=== PATIENT | male | born 1990 | race Caucasian/White ===

== ENCOUNTER 2016-09-15 22:04 | Inpatient (IN) | payer BC, OTHER ==
[~2016-09-15] VITALS: Ht 188 cm; Wt 72.4 kg
--- NOTE | 2016-09-16 05:49 | ER ---
ADMIT: 09/15/2016 RM/LOC: 630 [facility] MR#: [id number] [address] [address] [address] [place] [address] Emergency Room Report SEX: M AGE: 26 : 1990 DATE: 09/15/2016 CHIEF COMPLAINT: Abdominal pain. HISTORY OF PRESENT ILLNESS: The patient is a 26-year-old male with cryptogenic pancreatitis, 3 previous admissions and evaluation at [facility] with biliary ultrasound, which was negative for impacted gallstones. States this weekend he did overindulge in alcohol and developed typical epigastric pain with vomiting. Denies any fevers, chills, diarrhea, flank pain, urgency, hematuria or dysuria. PAST MEDICAL HISTORY: ALLERGIES: NONE. MEDICATIONS: None. ILLNESSES: Cryptogenic pancreatitis. OPERATIONS: None. SOCIAL HISTORY: Occasional alcoholic beverage. Nonsmoker. No illicit drugs. FAMILY HISTORY: Adopted. REVIEW OF SYSTEMS: A 12-point review of systems negative for all other systems, illnesses, or operations except as outlined above. PHYSICAL EXAMINATION: VITAL SIGNS: Temp 97.7, pulse 68, respirations 18, BP 131/67, SaO2 of 95% on room air, weight 72.6 kilos. GENERAL: Nontoxic, acutely uncomfortable male without jaundice or icterus. HEENT: Normocephalic. No evidence of epistaxis, rhinorrhea, or otorrhea. NECK: Supple without lymphadenopathy or thyromegaly. CHEST: Clear. Breath sounds equal. HEART: Regular rate and rhythm without murmur, gallop, or edema. ABDOMEN: Soft, scaphoid, tender epigastrium without mass or megaly. Bowel sounds hypoactive. EXTREMITIES: No evidence of Homans sign, synovitis, or dermatitis. NEURO: EOMI. PERRLA. No evidence of drift, dysarthria, or ataxia. Gait normal. MENTAL STATUS: Alert, oriented, and cooperative without delusions, hallucinations, or abnormal thought content. MEDICAL DECISION MAKING: CT abdomen and pelvis shows acute nonsuppurative pancreatitis with no ductal dilatation. No evidence of gallstones, minimal ascites noted in the pelvis. WBC 15.0 with left shift. CRP 1.28. Lactic 0.8. Normal bilirubin, alkaline phosphatase, and AST. Lipase elevated 24,061. INR 1.1. Tox screen negative. Alcohol 3. UA 25 RBCs, 4 WBCs, 1+ blood, 2+ protein. ADMIT: 09/15/2016 RM/LOC: 630 [facility] MR#: [id number] [address] [address] [place] [address] Emergency Room Report SEX: M AGE: 26 : 1990 Patient was given 1 L of fluid, Zofran, Toradol, Protonix, and Dilaudid with improvement, but not relief. Discussed findings with Dr. Alvarez, who agreed and gave orders to nursing staff. DIAGNOSIS: Cryptogenic pancreatitis. RECOMMENDATION: Admit inpatient Med/Surg for Dr. Peter. ADMISSION/DISCHARGE CONDITION: Improved. Patient is a full code. Sukhi Bills MD/ modl JOB #: [id number] CC: Andrew Peter MD, Attending Physician Andrew Peter MD, Family Physician Andrew Peter MD
--- NOTE | 2016-09-17 13:09 | HP ---
ADMIT: 09/15/2016 RM/LOC: 630 [facility] MR#: [id number] [address] [address] [address] [place] [address] History and Physical SEX: M AGE: 26 : 1990 DATE OF SERVICE: 09/16/2016 CHIEF COMPLAINT/HISTORY OF PRESENT ILLNESS: Margo Devries was seen in the emergency room late yesterday evening and I was called and needed to be admitted to acute care. Dr. Farah saw him. He reports onset of pain over the last 24 hours in the epigastric area essentially nonradiating. It was associated with at least one episode of vomiting and of course the nausea associated. It is not associated with any other bowel changes, bladder changes, chills, or fever. He recognizes the pancreatitis that he has had in the past. This is on a background of a patient, who has been hospitalized by his assessment 3 possibly 4 times with acute pancreatitis and I think he has had other lesser episodes that he did not seek consult from a doctor. He thinks the contributor for this may have been increased alcohol use over the last couple weeks, although not a lot this particular weekend. His a lab work in the emergency room showed a markedly elevated lipase over 20,[address] findings, which suggested acute pancreatitis. He was treated in the emergency room with IV fluids and pain and nausea management and is now admitted to acute care. PAST MEDICAL HISTORY: As previously noted, at least three prior hospitalizations for pancreatitis. These where hay stings. 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 His understanding was the cause of the pancreatitis was not clear. His gallbladder was not felt to be the issue. At this point, he just tried to limit his alcohol intake. Other chronic illnesses, none. HOSPITALIZATIONS: Hospitalized for some behavioral issues as a teenager, otherwise just for the pancreatitis. ALLERGIES: NONE. MEDICATIONS: None routinely. HABITS: Alcohol use is not routine. He has not ever been diagnosed with alcohol dependency or abuse. He does not use illicit substances. He does smoke. SOCIAL HISTORY: He is single. Lives in [place], locally employed with a [employer] company. REVIEW OF SYSTEMS: CONSTITUTIONAL: No fever or chills. ENT: No complaints. EYES: No complaints. RESPIRATORY: No cough or dyspnea. CV: No chest pain. GI: As in the above history. : No dysuria or other complaints, but otherwise, a little bit of blood in his urinalysis in the emergency room. ADMIT: 09/15/2016 RM/LOC: 630 [facility] MR#: [id number] [address] [address] [place] [address] History and Physical SEX: M AGE: 26 : 1990 MUSCLE, BONE, AND JOINT: No complaints. NEURO/PSYCH: All negative. HEMATOLOGIC: No history of bleeding or blood clots. PHYSICAL EXAMINATION: GENERAL: Reveals a healthy in appearance, 26-year-old male. He was sleeping when I entered the room. He was alert on awakening and did not appear in any acute distress. He has had narcotics since admission. MOST RECENT VITAL SIGNS: 96.7-53-16-123/68-97% sat on room air. ENT: Mucous membranes are moist. No nasal discharge. Hearing intact. EYES: Normal in appearance. No scleral icterus. Pupils are equal, somewhat constricted probably due to his opiates given. NECK: No masses or tenderness or enlarged thyroid. HEART: Regular rhythm without murmur. LUNGS: Clear to auscultation with normal respiratory effort. BACK: Nontender to exam. Cause some upper mid or lower back or over the spine, and back is normal to inspection. GENITALIA: Unremarkable to cursory exam. ABDOMEN: Moderate tenderness in the epigastric area and then more to the left upper abdomen than the right. Lower abdomen is not significantly tender. Abdomen is flat. Normal bowel sounds. No rebound and no organomegaly. SKIN: No rashes. Upper extremities are normal in appearance. Lower extremities are normal in appearance. NEURO: Grossly intact. PSYCH: Also no evidence of any acute anxiety or depressive symptoms. CT scan showed pancreatitis without evidence of hemorrhagic change or pseudocyst. His renal function and CBC are normal. CRP is mildly elevated at about 1.3 and then of course the elevated lipase. Liver functions are normal. IMPRESSION: Uncomplicated acute pancreatitis (recurrent episodes). DISCUSSION: Treatment is supportive at this point. Fortunately, no complicating issues for now. We would certainly discourage any alcohol use even if it is not acute amount that he uses (his blood alcohol level was 3 in the emergency room). Also, make an effort to get his old records from Dr. Fine's former office in [place] to see if there is anything else that could or should be done for Margo to manage this further and have his lipids back and triglycerides are low. Nas Alvarez MD/ zohreh JOB #: [id number] CC: Andrew Peter, Attending Physician Andrew Peter, Family Physician
[2016-09-19] MEDS ORDERED: MAALOX DPS30 ML PO (10:08)
[2016-09-19] MEDS ORDERED: TYLENOL DPS325 MG PO (10:08)
--- NOTE | 2016-10-21 12:53 | DS ---
ADMIT: 09/15/2016 RM/LOC: 630 [facility] MR#: [id number] [address] [address] [address] [place] [address] General Discharge Summary SEX: M AGE: 26 : 1990 ADMISSION DATE: 09/15/2016 DISCHARGE DATE: 09/18/2016 ADMITTING DIAGNOSIS: As per history and physical. FINAL DIAGNOSES: 1. Acute pancreatitis, resolving. 2. Severe abdominal pain, resolved. 3. Nicotine dependence. 4. History of chronic recurrent pancreatitis. COMPLICATIONS: None. OPERATIONS: None. CLINICAL HISTORY: Margo is a 26-year-old, white male, who is admitted to [place] after presenting to the emergency room complaining of severe abdominal pain. The patient had been in the ER the previous day with pain and was diagnosed with recurrent pancreatitis. This is his fourth major episode of pancreatitis in the past 2 years. Attempted to manage it on an outpatient basis at home but was unable to deal with the pain and protracted nausea and vomiting. For that reason, he returned to the ER and is admitted with recurrent acute pancreatitis. For further details of the clinical history as well as past medical history and pertinent findings on physical exam, please see dictated history and physical. LABORATORY AND X-RAY SUMMARY FROM THIS ADMISSION: For complete details of lab, please see cumulative laboratory summary included in the chart. Brief synopsis of lab; initial CBC showed a white count of 15,000, hemoglobin 14.9. At discharge, his white count was 7100, hemoglobin 11.5, hematocrit 34.6, platelets 210,000. His INR was normal at 1.1. Urinalysis on admission was clear. On admission, his lipase was elevated at 24,061. On his second hospital day, amylase was down to 11,200, and on his day of discharge, lipase was down to 555. Amylase was mildly elevated at 137. The patient's lipids were noted to be normal. His HDL was 37, LDL was 78. His total cholesterol was 129. Triglycerides were normal at 68. LFTs were all normal during this hospitalization. Drug screen on admission was negative. X-ray studies included a CT of the abdomen and pelvis done on admission which showed acute pancreatitis without abscess or pseudocyst. No other intraabdominal pathology. 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 IV Zofran was used for nausea and vomiting. He was initially placed n.p.o., placed at bowel rest. By his second hospital day, he was feeling much better. His pancreatic enzymes were coming down. He was started on sips of water and ice chips and then progressed to clear liquids. By 09/18/2016, he was feeling much better, tolerating clear liquids. His nausea and vomiting had completely resolved. ADMIT: 09/15/2016 RM/LOC: 630 [facility] MR#: [id number] [address] [place] [id number] [place] [address] General Discharge Summary SEX: M AGE: 26 : 1990 Abdominal pain was minimal. He ultimately was dismissed to home on the afternoon of 09/18/2016, with planned followup in our office on 09/23/2016. DISCHARGE MEDICATIONS: At discharge, his medications were to include: 1. Maalox p.r.n. indigestion. 2. Tylenol p.r.n. minor discomfort. He was to avoid alcohol. He was also to avoid large greasy or fatty meals. CONDITION AT DISCHARGE: Improved. PROGNOSIS: [place] to be good. Andrew Peter MD/ zohreh JOB #: [id number] CC: Andrew Peter MD, Attending Physician Andrew Peter MD, Family Physician
== END 2016-09-18 11:05 | disposition home or self-care (01) | DRG 440 ==
LOC: ER 22:04 → 6PED 23:30
PROVIDERS: ADMIT Family Medicine
DX: K85.90 Acute pancreatitis without necrosis or infection, unspecified (principal); F17.200 Nicotine dependence, unspecified, uncomplicated; K86.1 Other chronic pancreatitis